=== PATIENT | female | born 1955 | race Hispanic/Latino ===

== ENCOUNTER 2018-08-20 12:15 | Emergency (ER) | payer OTHER ==
[2018-08-20 12:18] VITALS: PULSE 68; TEMP 98.8; O2SAT 100
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
[2018-08-20 14:52] VITALS: BP 131/76; RESP 18
== END 2018-08-20 14:52 | disposition home or self-care (01) ==
LOC: H.ER 12:15
DX: M54.5 Low back pain (principal); V43.52XA Car driver injured in collision with other type car in traffic accident, initial encounter; Y92.410 Unspecified street and highway as the place of occurrence of the external cause; Z88.0 Allergy status to penicillin